=== PATIENT | female | born 1960 | race Caucasian/White ===

== ENCOUNTER 2018-01-16 15:04 | Emergency (ER) | payer OTHER ==
[~2018-01-16] VITALS: Ht 154.9 cm; Wt 72.1 kg
[~2018-01-16 15:04] MED LIST: PREDNICOT20 MG PO; VALIUM5 M1 PO; VICODIN5-300 PO
[2018-01-16] MEDS ORDERED: SIMVASTATIN10 M1 PO (16:56)
[2018-01-16] MEDS ORDERED: PAMELOR50 M1 PO (16:57)
[2018-01-16] MEDS ORDERED: ESCITALOPRAM OX20 MG PO (16:57)
[2018-01-16] MEDS ORDERED: PREDNISONE10 M2 PO (16:58)
[2018-01-16] MEDS ORDERED: IMIPRAMINE HCL PO (16:59)
--- NOTE | 2018-01-16 17:40 | ED GENERAL ADULT ---
History of Present Illness General Chief Complaint: Low Back Pain/Injury Stated Complaint: BACK PAIN Source: patient, family Exam Limitations: no limitations Vital Signs & Intake/Output Vital Signs & Intake/Output Vital Signs Date Time Temp Pulse Resp B/P B/P Pulse O2 O2 Flow FiO2 Mean Ox Delivery Rate 01/16 1848 98.6 88 18 126/74 98 Room Air Room Air 01/16 1705 98.9 90 21 130/80 98 Room Air 01/16 1514 99.0 104 18 125/78 99 Room Air Allergies Coded Allergies: NO KNOWN ALLERGIES (07/10/14) Triage Note: C/O LOW BACK PAIN RADIAITING TO R THIGH X 3 DAYS, NO KNOWN INJURY. PMH: L4-5 FUSION 2014. Triage Nurses Notes Reviewed? yes HPI: Pt is a 57 y/o F PMHx s/p L4-L5 laminectomy, multiple bilateral knee surgeries, chronic pain is presenting with lower back pain x 5 days. This past Wednesday, pt returned home from a 12 hour car ride and noted increased back pain and back muscle spasming from her baseline. Pt states pain is located in the lower back and radiates down her right leg past the knee. Pt admits to paresthesias in her toes bilaterally that have increased from baseline. Pt takes nortriyptiline 50 mg PO BID for pain although did not try anything further to improve pain. Pt admits to neck pain that she has been seeing pain management for. Pt received prednisone, although did not take it. Pt states that she is having severe difficulty ambulating due to symptoms. Pt denies saddle anesthesias, oliguria, weakness, dizziness, headache, N/V/D, CP, SOB, dysuria, abdominal pain. (Med DAVISON,Kendrick) Reconcile Medications Diazepam (Valium) 5 MG TABLET 1 TAB PO TIDPRN Muscle spasms Escitalopram Oxalate 20 MG TABLET 1 TAB PO DAILY MENTAL HEALTH (Reported) Imipramine HCl 10 MG TABLET 1 TAB PO DAILY BLADDER (Reported) Nortriptyline HCl (Pamelor) 50 MG CAPSULE 1 CAP PO BID NERVE PAIN (Reported) Prednisone 10 MG TABLET 1 TAB PO BID STEROID (Reported) Simvastatin (Simvastatin*) 10 MG TABLET 1 TAB PO QPM CHOLESTEROL (Reported) (Lam LIU,Donald Marcelo) Past History Travel History Traveled to [place] past 21 day No Medical History Any Pertinent Medical History? see below for history Neurological: NONE EENT: NONE Cardiovascular: NONE Respiratory: NONE Gastrointestinal: NONE Hepatic: NONE Renal: NONE Musculoskeletal: osteoarthritis, BACK PAIN L4/5-NEEDS SX RAJ KNEE REPL Psychiatric: NONE Endocrine: NONE Blood Disorders: NONE Cancer(s): NONE CATALOG LIBRARIAN/Reproductive: NONE Surgical History Surgical History: knee replacement, laminectomy Psychosocial History What is your primary language Slovenian Tobacco Use: Never used ETOH Use: occasional use Family History Hx Contributory? Yes (Kendrick Jovel PA-C) Review of Systems Review of Systems Constitutional: Denies: see HPI. Respiratory: Denies: no symptoms. Cardiovascular: Denies: no symptoms, see HPI. GI: Denies: no symptoms, see HPI. Musculoskeletal: Reports: see HPI. Neurological/Psychological: Reports: see HPI. All Other Systems: Reviewed and Negative (Kendrick Jovel PA-C) Physical Exam Physical Exam General Appearance: alert, awake, moderate distress Head: atraumatic, normal appearance Eyes: Bilateral: normal appearance, PERRL, EOMI. Neck: normal inspection, supple, limited range of motion, no midline tenderness Respiratory: normal breath sounds, no respiratory distress, lungs clear Cardiovascular: regular rate/rhythm, normal peripheral pulses Peripheral Pulses: 2+ radial (R), 2+ radial (L), 2+ dorsalis pedis (R), 2+ dorsalis pedis (L) Back: decreased range of motion, No palpable step-offs or deformities, PT is tender to palpation of right lumbar paravertebral muscles, SI joint., Right straight leg test positive Neurologic/Psych: awake, alert, oriented x 3, Pt unable to demonstrate gait due to pain Core Measures ACS in differential dx? No CVA/TIA Diagnosis: No Sepsis Present: No Sepsis Focused Exam Completed? No (Kendrick Jovel PA-C) Progress Differential Diagnoses I considered the following diagnoses in my evaluation of the patient: [Muscle spasm, lumbar strain/sprain, cauda equina, AAA, spinal epidural abscess, pyelonephritis, urinary tract infection, PID, kidney stone, sciatica, herniated disc.] Plan of Care: Current Medications Sig/Dayanna Start time Last Medication Dose Stop Time Status Admin Ibuprofen 400 MG 4 TIMES/DAY 01/16 1813 CAN (Motrin) Diazepam 5 MG ONCE ONE 01/16 1745 CAN (Valium) 01/16 1746 Morphine Sulfate 4 MG ONCE ONE 01/16 1745 CAN (MORPHINE SULFATE) 01/16 1746 Initial ED EKG: none Comments: Patient is a 57-year-old female who is presenting today with muscle spasms in her low back. Pain is reproducible him on exam. It is worse with range of motion. There is no numbness or tingling in the legs. She has normal motor and gross sensation is intact. She has no saddle anesthesia, retention or incontinence. I have low concern for cauda equina syndrome. Low concern for fracture as there was no mechanism. She has no abdominal pain, nausea or vomiting, low concern for UTI, pyelonephritis, kidney stone. I do not feel that the injections she receives in her low back have caused an abscess. Patient has had similar symptoms in the past attributed to muscle spasms. She was given Valium and morphine with some relief of pain. We will give her p.o. Valium to take as needed. She was also prescribed a prednisone taper by her back doctor which she will start today when she gets home. She will be discharged at this time in stable condition. driving home. Follow-up with her primary care doctor as well as her orthopedist. Return immediately with any new worsening symptoms. She is in agreement with plan of care. (Med DAVISON,Kendrick) Departure Departure Time of Disposition: 1817 Disposition: HOME OR SELF CARE Condition: Stable Clinical Impression Primary Impression: Low back pain Referrals: Unknown (PCP/Family) Additional Instructions: Take valium as needed for muscle spasms. Start prednisone taper previously prescribed by your doctor. Please go over all results of today's visit with your primary care doctor. Contact your primary care doctor to let them know you were here in the emergency room. There may be nonspecific findings which may not be related to your visit today here in the emergency room but may require further evaluation and chronic monitoring by your primary care doctor. If your blood pressure was elevated here in the emergency room please have rechecked by [facility] primary care doctor within the next 48. If you were prescribed a narcotic here in the emergency room or any type of controlled substances you're not allowed to drive while taking this medication or operate any type of heavy machinery. Narcotics can make you feel lightheaded dizziness nausea and can cause constipation. You may need to pickle cutter a stool softener. Thank you for choosing [facility] emergency room. Please return to the emergency room immediately if you have any other concerns worsening of symptoms. Departure Forms: Customer Survey General Discharge Information (Med DAVISON,Kendrick) Departure Prescriptions: Current Visit Scripts Diazepam (Valium) 1 TAB PO TIDPRN #9 TAB PA/BUILDING CUSTODIAL SUPERVISOR Co-Sign Statement Statement: ED Attending supervision documentation- [] I saw and evaluated the patient. I have also reviewed all the pertinent lab results and diagnostic results. I agree with the findings and the plan of care as documented in the PA's/BUILDING CUSTODIAL SUPERVISOR's documentation. [x] I have reviewed the ED Record and agree with the PA's/BUILDING CUSTODIAL SUPERVISOR's documentation. [] Additions or exceptions (if any) to the PAs/BUILDING CUSTODIAL SUPERVISOR's note and plan are summarized below: [] (Lam LIU,Donald Marcelo) Critical Care Note Critical Care Note Critical Care Time: non-applicable (Med DAVISON,Kendrick)
[2018-01-16] MEDS ORDERED: VALIUM5 M2 PO (18:23)
[2018-01-16 18:48] VITALS: BP 126/74
== END 2018-01-16 18:48 ==
LOC: ERH 15:04
DX: M54.5 Low back pain (principal)
CPT/HCPCS: J3360